=== PATIENT | female | born 1970 ===

== ENCOUNTER 2019-04-06 15:22 | Observation (INO) | payer MEDICAID, OTHER ==
[2019-04-06 15:36] VITALS: BMI 34.5
--- NOTE | 2019-04-06 16:23 | C.PDOC ---
History Of Present Illness 48 y/o female, with history of hypertension, presents to ED stating she is feeling low blood pressure and blood sugar. Notes that she didnt check her blood pressure and glucose at home, so she feels she had low blood pressure and blood glucose. Patient also notes of bilateral lackness of her vision described as dizziness and vertigo, worse when she moves her head. Denies any headache, synagogue pain, or history of stroke. Denies current vision issues. Also denies chest pain, SOB, abdominal pain, GI problem, neck stiffness, fever, chills, or night sweats. Time Seen by Provider: 04/06/19 15:48 Chief Complaint (Nursing): Medical Clearance History Per: Patient History/Exam Limitations: no limitations Onset/Duration Of Symptoms: Hrs Current Symptoms Are (Timing): Still Present Past Medical History Reviewed: Historical Data, Nursing Documentation, Vital Signs Vital Signs: Last Vital Signs Temp 98.4 F 04/06/19 15:33 Pulse 82 04/06/19 15:33 Resp 17 04/06/19 15:33 BP 134/84 04/06/19 15:33 Pulse Ox 100 04/06/19 15:33 Primary Care Provider: Radha Hines - Medical History PMH: HTN Surgical History: Appendectomy Family History: States: No Known Family Hx - Social History Hx Alcohol Use: No Hx Substance Use: No - Immunization History Hx Tetanus Toxoid Vaccination: No Review Of Systems Except As Marked, All Systems Reviewed And Found Negative. Constitutional: Negative for: Fever, Chills Eyes: Negative for: Vision Change Cardiovascular: Negative for: Chest Pain Respiratory: Negative for: Cough, Shortness of Breath Gastrointestinal: Negative for: Nausea, Vomiting, Abdominal Pain, Constipation Genitourinary: Negative for: Dysuria, Hematuria Musculoskeletal: Negative for: Neck Pain Neurological: Negative for: Headache, Dizziness Physical Exam - Physical Exam Appears: Well, Non-toxic, No Acute Distress Skin: Warm, Dry Head: Atraumatic, Normacephalic Eye(s): bilateral: Normal Inspection, PERRL, EOMI Ear(s): Bilateral: Normal Nose: Normal, No Flaring, No Discharge Oral Mucosa: Moist Tongue: Normal Appearing Lips: Normal Appearing Teeth: Normal Dentition Gingiva: Normal Appearing Throat: Normal, No Erythema, No Exudate, No Drooling Neck: Normal, Normal ROM, Supple, Other (no meningeal signs) Chest: Symmetrical Cardiovascular: Rhythm Regular, No Murmur Respiratory: Normal Breath Sounds, No Rales, No Rhonchi, No Wheezing Gastrointestinal/Abdominal: Soft, No Tenderness, No Mass, No Distention, No Guarding, No Rebound, No Hernia Back: Normal Inspection, No CVA Tenderness, No Vertebral Tenderness Extremity: Normal ROM, No Tenderness, No Pedal Edema Extremity: Bilateral: Atraumatic, Normal Color And Temperature, Normal ROM Pulses: Left Radial: Normal, Right Radial: Normal Neurological/Psych: Oriented x3, Normal Speech, Normal Cognition, Normal Cranial Nerves, No Cerebellar Signs, Normal Motor, Normal Sensation Gait: Steady ED Course And Treatment - Laboratory Results Result Diagrams: 04/06/19 17:11 04/06/19 17:11 O2 Sat by Pulse Oximetry: 100 (RA) Pulse Ox Interpretation: Normal Medical Decision Making Medical Decision Makin48 y/o female, with history of hypertension, presents to ED stating she is feeling low blood pressure and blood sugar. On exam, no cerebellar signs, good strong steady gait with good finger to nose. No central vertigo findings. No unilateral vision issues. She notes b/l blurred vision which has since resolved. No fall or trauma. No headache, nausea or vomiting. No neck pain or recent neck manipulation. Overall well appearing on exam with normal cardiac and neuro exam. Plan: --Labs --Chest XR --Glucose POC --POC urine --Urinalysis --Antivert 25 mg PO --IV fluids 1L --- Chest XR Findings IMPRESSION: No acute findings. --- 1804 CXR unremarkable labs unremarkable pending CTH Appreciate consult w/ Dr. Hines: to admit to his service- to follow CT pt in NAD, agreeable to plan. Disposition - Disposition Disposition: HOSPITALIZED Disposition Time: 18:16 Condition: STABLE Forms: Nimbula (Kiswahili) - Clinical Impression Clinical Impression: Dizziness - Scribe Statement The provider has reviewed the documentation as recorded by the Jewels [place] Provider Attestation: All medical record entries made by the Jewels were at my direction and personally dictated by me. I have reviewed the chart and agree that the record accurately reflects my personal performance of the history, physical exam, medical decision making, and the department course for this patient. I have also personally directed, reviewed, and agree with the discharge instructions and d isposition.
[2019-04-06] MEDS ORDERED: Sodium Chloride 0.9% 1,000 ML IV ONE (16:29)
--- NOTE | 2019-04-06 16:43 | RAD ---
HISTORY: dizzy COMPARISON: None available. TECHNIQUE: Chest PA and lateral, 2 views FINDINGS: LUNGS: No focal consolidation. Please note that chest x-ray has limited sensitivity for the detection of pulmonary masses. PLEURA: No significant pleural effusion identified. No definite pneumothorax . CARDIOVASCULAR: The cardiomediastinal silhouette appears within normal limits of size. Atherosclerotic calcifications present. OSSEOUS STRUCTURES: No acute osseous abnormality identified. VISUALIZED UPPER ABDOMEN: Unremarkable. OTHER FINDINGS: None. IMPRESSION: No acute findings.
[2019-04-06] MEDS ORDERED: Sodium Chloride 0.9% 1,000 ML ONE (17:01)
[2019-04-06 17:18] LABS: BASO % 0.4 % (0.0-2.0); EOS # 0.1 K/uL (0.0-0.7); EOS % 1.5 % (0.0-4.0); HEMOGLOBIN 12.8 g/dL (11.0-16.0); LYMPH # 1.8 K/uL (1.0-4.3); LYMPH % 21.3 % (20.0-40.0); MEAN CORPUSCULAR HEMOGLOBIN 26.5 pg (27.0-31.0); MEAN CORPUSCULAR HGB CONC 33.1 g/dL (33.0-37.0); MEAN PLATELET VOLUME 8.3 fL (7.2-11.7); MONO # 0.7 K/uL (0.0-0.8); NEUT # 5.6 K/uL (1.8-7.0); NEUT % 67.8 % (50.0-75.0); RBC 4.84 Mil/uL (3.80-5.20); RED CELL DISTRIBUTION WIDTH 14.1 % (11.5-14.5); WHITE BLOOD COUNT 8.2 K/uL (4.8-10.8)
[2019-04-06 17:25] LABS: SQUAMOUS EPITHIAL 12 /hpf (0-5); URINE BACTERIA RARE (<OCC); URINE BILIRUBIN NEGATIVE (NEGATIVE); URINE BLOOD NEGATIVE (NEGATIVE); URINE CLARITY Hazy (Clear); URINE COLOR Yellow (YELLOW); URINE GLUCOSE (UA) NORMAL (Normal); URINE LEUKOCYTE ESTERASE NEG Leu/uL (Negative); URINE PROTEIN NEGATIVE (NEGATIVE); URINE UROBILINOGEN NORMAL mg/dL (0.2-1.0)
[2019-04-06 17:29] LABS: ALB/GLOB RATIO 1.1 (1.0-2.1); ALBUMIN 3.9 g/dL (3.5-5.0); ALT/SGPT 24 U/L (9-52); AST/SGOT 23 U/L (14-36); BLOOD UREA NITROGEN 10 mg/dL (7-17); CALCIUM 9.5 mg/dl (8.6-10.4); GFR NON-AFRICAN AMERICAN > 60
--- NOTE | 2019-04-06 19:22 | CT ---
Date of service: 04/06/2019 PROCEDURE: CT HEAD WITHOUT CONTRAST. HISTORY: dizzy COMPARISON: None available. TECHNIQUE: Axial computed tomography images were obtained through the head/brain without intravenous contrast. Radiation dose: Total exam DLP = 1025.65 mGy-cm. This CT exam was performed using one or more of the following dose reduction techniques: Automated exposure control, adjustment of the mA and/or kV according to patient size, and/or use of iterative reconstruction technique. FINDINGS: HEMORRHAGE: No intracranial hemorrhage. BRAIN: No mass effect or edema. No atrophy or chronic microvascular ischemic changes. VENTRICLES: Unremarkable. No hydrocephalus. CALVARIUM: Unremarkable. PARANASAL SINUSES: Unremarkable as visualized. No significant inflammatory changes. MASTOID AIR CELLS: Unremarkable as visualized. No inflammatory changes. OTHER FINDINGS: None. IMPRESSION: No evidence of acute intracranial hemorrhage mass effect or midline shift.
--- NOTE | 2019-04-06 20:57 | CP.PCM.HP ---
Past Patient History - Past Social History Smoking Status: Never Smoked - CARDIAC Hx Hypertension: Yes - NEUROLOGICAL Hx Neurological Disorder: Yes (POLIO) - PSYCHIATRIC Hx Substance Use: No - SURGICAL HISTORY Hx Appendectomy: Yes Meds Allergies/Adverse Reactions: Allergies Allergy/AdvReac Type Severity Reaction Status Date / Time No Known Allergies Allergy Verified 04/06/19 15:27 Physical Exam - Constitutional Appears: Well - Head Exam Head Exam: ATRAUMATIC, NORMAL INSPECTION, NORMOCEPHALIC - Eye Exam Eye Exam: EOMI, Normal appearance, PERRL Pupil Exam: NORMAL ACCOMODATION, PERRL - ENT Exam ENT Exam: Mucous Membranes Moist, Normal Exam - Neck Exam Neck exam: Positive for: Normal Inspection - Respiratory Exam Respiratory Exam: Decreased Breath Sounds - Cardiovascular Exam Cardiovascular Exam: REGULAR RHYTHM, +S1, +S2 - GI/Abdominal Exam GI & Abdominal Exam: Diminished Bowel Sounds, Soft - Rectal Exam Rectal Exam: Deferred - Neurological Exam Neurological exam: Oriented x3 Results - Vital Signs Recent Vital Signs: Last Vital Signs Temp 97.6 F 04/06/19 20:54 Pulse 80 04/06/19 20:54 Resp 16 04/06/19 20:54 BP 88/55 L 04/06/19 20:54 Pulse Ox 99 04/06/19 20:54 - Labs Result Diagrams: 04/06/19 17:11 04/06/19 17:11 Labs: Laboratory Results - last 24 hr 04/06/19 04/06/19 04/06/19 15:35 17:11 17:11 WBC 8.2 RBC 4.84 Hgb 12.8 Hct 38.7 MCV 80.0 L MCH 26.5 L MCHC 33.1 RDW 14.1 Plt Count 231 MPV 8.3 Neut % (Auto) 67.8 Lymph % (Auto) 21.3 [place] % (Auto) 9.0 Eos % (Auto) 1.5 Baso % (Auto) 0.4 Neut # (Auto) 5.6 Lymph # (Auto) 1.8 [place] # (Auto) 0.7 Eos # (Auto) 0.1 Baso # (Auto) 0.0 Sodium Potassium Chloride Carbon Dioxide Anion Gap BUN Creatinine Est GFR ( Amer) Est GFR (Non-Af Amer) POC Glucose (mg/dL) 82 Random Glucose Calcium Total Bilirubin AST ALT Alkaline Phosphatase Total Protein Albumin Globulin Albumin/Globulin Ratio Urine Color Yellow Urine Clarity Hazy Urine pH 6.0 Ur Specific [place] 1.004 Urine Protein Negative Urine Glucose (UA) Normal Urine Ketones Negative Urine Blood Negative Urine Nitrate Negative Urine Bilirubin Negative Urine Urobilinogen Normal Ur Leukocyte Esterase Neg Urine WBC (Auto) 1 Urine RBC (Auto) < 1 Ur Squamous Epith Cells 12 H Urine Bacteria Rare 04/06/19 17:11 WBC RBC Hgb Hct MCV MCH MCHC RDW Plt Count MPV Neut % (Auto) Lymph % (Auto) [place] % (Auto) Eos % (Auto) Baso % (Auto) Neut # (Auto) Lymph # (Auto) [place] # (Auto) Eos # (Auto) Baso # (Auto) Sodium 138 Potassium 4.0 Chloride 102 Carbon Dioxide 28 Anion Gap 12 BUN 10 Creatinine 0.5 L Est GFR ( Amer) > 60 Est GFR (Non-Af Amer) > 60 POC Glucose (mg/dL) Random Glucose 86 Calcium 9.5 Total Bilirubin 0.5 AST 23 ALT 24 Alkaline Phosphatase 89 Total Protein 7.4 Albumin 3.9 Globulin 3.4 Albumin/Globulin Ratio 1.1 Urine Color Urine Clarity Urine pH Ur Specific [place] Urine Protein Urine Glucose (UA) Urine Ketones Urine Blood Urine Nitrate Urine Bilirubin Urine Urobilinogen Ur Leukocyte Esterase Urine WBC (Auto) Urine RBC (Auto) Ur Squamous Epith Cells Urine Bacteria
[2019-04-06 22:29] VITALS: RESP 20
[2019-04-07 01:22] LABS: CK-MB 0.33 ng/mL (0.0-3.38)
[2019-04-07 07:37] VITALS: O2SAT 97
[2019-04-07] MEDS ORDERED: Enoxaparin 40 mg Syringe SC SCH (10:00)
[2019-04-07] MEDS ORDERED: Pantoprazole 40 mg EC Tab PO SCH (10:00)
[2019-04-07] MEDS ORDERED: Pneumococcal 23-Valent Vaccine IM ONE (10:00)
--- NOTE | 2019-04-07 11:07 | CP.PCM.PN ---
Subjective - Date & Time of Evaluation Date of Evaluation: 04/07/19 Time of Evaluation: 11:06 - Subjective Subjective: 48 year old female with a past medical history of polio and hypertension presents to the hospital after reporting dizziness for the past couple of days. Patient states states she felt like "her blood pressure and sugar were low", however didn't check either while at home. Patient also reported unilateral blurry vision that happened in conjunction with the dizziness. Patient states she never had that happen before which is why she decided to come in. Patient denies any chest pain, fevers, chills, headaches, nausea, vomiting, syncopal episodes, or any other complaints. Medical history: htn, polio Medications: Lisinopril 10mg PO DAILY Allergies: Denies Surgical history: Left left surgery, Appendectomy, 2 Objective - Vital Signs/Intake and Output Vital Signs (last 24 hours): Temp Pulse Resp BP Pulse Ox 97.4 F L 74 20 121/76 97 04/07/19 07:00 04/07/19 07:00 04/07/19 07:00 04/07/19 07:00 04/07/19 07:00 Intake and Output: 04/07/19 04/07/19 06:59 18:59 Intake Total 180 Balance 180 - Medications Medications: Current Medications Aspirin (Aspirin) 325 mg PO DAILY [facility] Last Admin: 04/07/19 09:37 Dose: 325 mg Enoxaparin Sodium (Lovenox) 40 mg SC DAILY [facility] Last Admin: 04/07/19 09:37 Dose: 40 mg Lisinopril (Zestril) 10 mg PO DAILY [facility] Last Admin: 04/07/19 09:37 Dose: 10 mg Meclizine HCl (Antivert) 25 mg PO Q8 [facility] Last Admin: 04/07/19 09:37 Dose: 25 mg Pantoprazole Sodium (Protonix Ec Tab) 40 mg PO DAILY [facility] Last Admin: 04/07/19 09:37 Dose: 40 mg - Labs Labs: 04/06/19 17:11 04/06/19 17:11 - Head Exam Head Exam: ATRAUMATIC, NORMAL INSPECTION - Eye Exam Eye Exam: EOMI, Normal appearance, PERRL Pupil Exam: NORMAL ACCOMODATION. absent: Irregular, Unequal - ENT Exam ENT Exam: Mucous Membranes Moist, Normal Oropharynx - Respiratory Exam Respiratory Exam: Clear to Ausculation Bilateral, NORMAL BREATHING PATTERN. absent: Prolonged Expiratory Phase, Respiratory Distress - Cardiovascular Exam Cardiovascular Exam: REGULAR RHYTHM, RRR, +S1, +S2. absent: Rubs - GI/Abdominal Exam GI & Abdominal Exam: Soft, Normal Bowel Sounds. absent: Hyperactive Bowel Soun ds - Extremities Exam Extremities Exam: Full ROM, Normal Inspection. absent: Joint Swelling, Pedal Edema - Back Exam Back Exam: NORMAL INSPECTION. absent: CVA tenderness (R), paraspinal tenderness - Neurological Exam Neurological Exam: Alert, Awake, CN II-XII Intact, Oriented x3 - Psychiatric Exam Psychiatric exam: Normal Affect, Normal Mood - Skin Skin Exam: Dry, Intact, Normal Color Assessment and Plan - Assessment and Plan (Free Text) Assessment: 48 year old female with a past medical history of polio and hypertension presents to the hospital after reporting dizziness for the past couple of days. Plan: 1.Dizziness Head CT: negative Neurology Dr. Roper consulted--> Help appreciated Meidcations: Antivert 25mg PO Q8 [facility] Aspirin 325mg PO DAILY 2. hx of Hypertension -Continue Lisinopril 10mg PO DAILY PPX -Lovenox -PT Plan discussed with Attending Dr. Hines. Discharge Instructions: 1.F/u with PMD within 5 days of discharge. 2. F/u with Neurology within 5 days of discharge. 3.F/u with Ophthalmology within 5 days of discharge. 4. Return to hospital for any new or worsening symptoms. Medications: 1.ASA 325MG PO DAILY, #30, No refills 2.Lisinopril 10mg PO DAILY, #30., No refills 3.Antivert 25mg PO DAILY, #30, No refills. Samson Chavira, PGY-2
[2019-04-07 16:03] VITALS: BP 105/69; PULSE 82; TEMP 98
--- NOTE | 2019-04-07 16:43 | CP.PCM.PN ---
Subjective - Date & Time of Evaluation Date of Evaluation: 04/07/19 Objective - Vital Signs/Intake and Output Vital Signs (last 24 hours): Temp Pulse Resp BP Pulse Ox 98.0 F 82 20 105/69 97 04/07/19 16:00 04/07/19 16:00 04/07/19 16:00 04/07/19 16:00 04/07/19 16:00 Intake and Output: 04/07/19 04/07/19 06:59 18:59 Intake Total 180 Balance 180 - Medications Medications: Current Medications Aspirin (Aspirin) 325 mg PO DAILY [facility] Last Admin: 04/07/19 09:37 Dose: 325 mg Enoxaparin Sodium (Lovenox) 40 mg SC DAILY [facility] Last Admin: 04/07/19 09:37 Dose: 40 mg Lisinopril (Zestril) 10 mg PO DAILY [facility] Last Admin: 04/07/19 09:37 Dose: 10 mg Meclizine HCl (Antivert) 25 mg PO Q8 [facility] Last Admin: 04/07/19 13:22 Dose: 25 mg Pantoprazole Sodium (Protonix Ec Tab) 40 mg PO DAILY [facility] Last Admin: 04/07/19 09:37 Dose: 40 mg - Labs Labs: 04/06/19 17:11 04/06/19 17:11 - Constitutional Appears: Well - Head Exam Head Exam: ATRAUMATIC, NORMAL INSPECTION, NORMOCEPHALIC - Eye Exam Eye Exam: EOMI, Normal appearance, PERRL Pupil Exam: NORMAL ACCOMODATION, PERRL - ENT Exam ENT Exam: Mucous Membranes Moist, Normal Exam - Neck Exam Neck Exam: Full ROM, Normal Inspection. absent: Lymphadenopathy - Respiratory Exam Respiratory Exam: Decreased Breath Sounds - Cardiovascular Exam Cardiovascular Exam: REGULAR RHYTHM, +S1, +S2 - GI/Abdominal Exam GI & Abdominal Exam: Soft, Diminished Bowel Sounds - Rectal Exam Rectal Exam: Deferred - Neurological Exam Neurological Exam: Oriented x3
--- NOTE | 2019-04-07 18:50 | CON ---
DATE: 04/07/2019 NEUROLOGY CONSULTATION CHIEF COMPLAINT: Dizziness. HISTORY OF PRESENT ILLNESS: This is a 48-year-old woman with history of portal hypertension, who presented to the hospital after having dizziness for the past couple of days. It felt like she was lightheaded and room was spinning, was seeing blurry vision. The patient stated it never happened before. She denies any recent trauma to the brain. CAT scan of the head showed no acute intracranial abnormalities. She had low systolic and diastolic blood pressure of 88/55 when she was admitted and was mildly dehydrated. Currently, she is at her baseline and will be discharged home and follow up in her our office as an out patient. PAST MEDICAL HISTORY: As above. SOCIAL HISTORY: No illicit drug use, smoking or EtOH abuse. REVIEW OF SYSTEMS: A 14-point review of systems negative except in the HPI. FAMILY HISTORY: Noncontributory. MEDICATIONS: Reviewed by nurse reconciliation sheet. PHYSICAL EXAMINATION: GENERAL: The patient is sitting up in bed, in no acute distress. VITAL SIGNS: Temperature 98, pulse 82, blood pressure 105/69, respiratory rate 20, oxygen saturation 97%. HEENT: Atraumatic, normocephalic. PERRLA. Extraocular muscles are intact. NECK: Supple. No JVD. No adenopathy noted. LUNGS: Clear to auscultation. No adventitious sounds. HEART: S1 and S2. Normal rate and rhythm. No murmurs, rubs, or gallops. ABDOMEN: Soft, nontender, nondistended. Bowel sounds present. EXTREMITIES: No clubbing, no cyanosis. Peripheral pulses 2+ felt bilaterally. NEURO: The patient is alert and oriented to person and place, but not year. Speech is fluent without any errors. Cranial nerves II through XII intact. Motor exam: Moves all extremities equally, but has some mild lower extremity . Sensory exam: Light touch, pinprick, proprioception and vibration intact. DTRs are 2+ throughout. Coordination: [id number] intact. No dysmetria noted. Gait is slightly wide-based. IMPRESSION: Dizziness. This is more of a positional vertigo with transient cerebral hypoperfusion to the brain. RECOMMENDATIONS: At this time, recommend: 1. Meclizine 25 mg at acute onset of dizziness. 2. Outpatient vestibular therapy and to follow up as a outpatient and fluid hydration throughout the day . Thank you for this consult. Zion Roper MD
--- NOTE | 2019-04-07 19:09 | CP.PCM.DIS ---
Provider - Provider Date of Admission: 04/06/19 18:11 Attending physician: Osman Hines MD Consults: 04/06/19 22:54 Neurology Consult Routine Comment: Consulting Provider: Zion Roper Consulting Physician: Zion Roper Reason for Consult: vertigo Hospital Course - Lab Results Lab Results: Most Recent Lab Values WBC 8.2 K/uL (4.8-10.8) 04/06/19 17:11 RBC 4.84 Mil/uL (3.80-5.20) 04/06/19 17:11 Hgb 12.8 g/dL (11.0-16.0) 04/06/19 17:11 Hct 38.7 % (34.0-47.0) 04/06/19 17:11 MCV 80.0 fL (81.0-99.0) L 04/06/19 17:11 MCH 26.5 pg (27.0-31.0) L 04/06/19 17:11 MCHC 33.1 g/dL (33.0-37.0) 04/06/19 17:11 RDW 14.1 % (11.5-14.5) 04/06/19 17:11 Plt Count 231 K/uL (130-400) 04/06/19 17:11 MPV 8.3 fL (7.2-11.7) 04/06/19 17:11 Neut % (Auto) 67.8 % (50.0-75.0) 04/06/19 17:11 Lymph % (Auto) 21.3 % (20.0-40.0) 04/06/19 17:11 [place] % (Auto) 9.0 % (0.0-10.0) 04/06/19 17:11 Eos % (Auto) 1.5 % (0.0-4.0) 04/06/19 17:11 Baso % (Auto) 0.4 % (0.0-2.0) 04/06/19 17:11 Neut # (Auto) 5.6 K/uL (1.8-7.0) 04/06/19 17:11 Lymph # (Auto) 1.8 K/uL (1.0-4.3) 04/06/19 17:11 [place] # (Auto) 0.7 K/uL (0.0-0.8) 04/06/19 17:11 Eos # (Auto) 0.1 K/uL (0.0-0.7) 04/06/19 17:11 Baso # (Auto) 0.0 K/uL (0.0-0.2) 04/06/19 17:11 Sodium 138 mmol/L (132-148) 04/06/19 17:11 Potassium 4.0 mmol/L (3.6-5.2) 04/06/19 17:11 Chloride 102 mmol/L (98-107) 04/06/19 17:11 Carbon Dioxide 28 mmol/L (22-30) 04/06/19 17:11 Anion Gap 12 (10-20) 04/06/19 17:11 BUN 10 mg/dL (7-17) 04/06/19 17:11 Creatinine 0.5 mg/dL (0.7-1.2) L 04/06/19 17:11 Est GFR ( Amer) > 60 04/06/19 17:11 Est GFR (Non-Af Amer) > 60 04/06/19 17:11 POC Glucose (mg/dL) 82 mg/dL (65-110) 04/06/19 15:35 Random Glucose 86 mg/dL (65-105) 04/06/19 17:11 Calcium 9.5 mg/dl (8.6-10.4) 04/06/19 17:11 Total Bilirubin 0.5 mg/dL (0.2-1.3) 04/06/19 17:11 AST 23 U/L (14-36) 04/06/19 17:11 ALT 24 U/L (9-52) 04/06/19 17:11 Alkaline Phosphatase 89 U/L (38-126) 04/06/19 17:11 Total Creatine Kinase 42 U/L (30-135) 04/07/19 00:25 CK-MB (Mass) 0.33 ng/mL (0.0-3.38) 04/07/19 00:25 Troponin I < 0.0120 ng/mL (0.00-0.120) 04/07/19 00:25 Total Protein 7.4 g/dL (6.3-8.3) 04/06/19 17:11 Albumin 3.9 g/dL (3.5-5.0) 04/06/19 17:11 Globulin 3.4 gm/dL (2.2-3.9) 04/06/19 17:11 Albumin/Globulin Ratio 1.1 (1.0-2.1) 04/06/19 17:11 Urine Color Yellow (YELLOW) 04/06/19 17:11 Urine Clarity Hazy (Clear) 04/06/19 17:11 Urine pH 6.0 (5.0-8.0) 04/06/19 17:11 Ur Specific [place] 1.004 (1.003-1.030) 04/06/19 17:11 Urine Protein Negative mg/dL (NEGATIVE) 04/06/19 17:11 Urine Glucose (UA) Normal mg/dL (Normal) 04/06/19 17:11 Urine Ketones Negative mg/dL (NEGATIVE) 04/06/19 17:11 Urine Blood Negative (NEGATIVE) 04/06/19 17:11 Urine Nitrate Negative (NEGATIVE) 04/06/19 17:11 Urine Bilirubin Negative (NEGATIVE) 04/06/19 17:11 Urine Urobilinogen Normal mg/dL (0.2-1.0) 04/06/19 17:11 Ur Leukocyte Esterase Neg Kelley/uL (Negative) 04/06/19 17:11 Urine WBC (Auto) 1 /hpf (0-5) 04/06/19 17:11 Urine RBC (Auto) < 1 /hpf (0-3) 04/06/19 17:11 Ur Squamous Epith Cells 12 /hpf (0-5) H 04/06/19 17:11 Urine Bacteria Rare (<OCC) 04/06/19 17:11 Urine HCG, Qual Negative (NEGATIVE) 04/07/19 07:11 Discharge Exam - Head Exam Head Exam: ATRAUMATIC, NORMAL INSPECTION, NORMOCEPHALIC - Eye Exam Eye Exam: EOMI, Normal appearance, PERRL Pupil Exam: NORMAL ACCOMODATION, PERRL - ENT Exam ENT Exam: Normal Exam - Neck Exam Neck exam: Full Rom - Respiratory Exam Respiratory Exam: Decreased Breath Sounds, Rales - Cardiovascular Exam Cardiovascular Exam: REGULAR RHYTHM, +S1, +S2 - GI/Abdominal Exam GI & Abdominal Exam: Diminished Bowel Sounds, Distended, Soft - Neurological Exam Neurological exam: Oriented x3 Discharge Plan - Discharge Medications Prescriptions: Meclizine [Antivert] 25 mg PO DAILY #30 tab Aspirin [Ecotrin] 325 mg PO DAILY #30 tablet. Lisinopril [Zestril] 10 mg PO DAILY #30 tablet - Follow Up Plan Condition: STABLE Disposition: HOME/ ROUTINE Instructions: Dizziness, Nonvertigo, (DC), Lisinopril, Meclizine Referrals: Zion Roper MD [Staff Provider] - Radha Hines MD [Staff Provider] -
== END 2019-04-07 17:50 | disposition home or self-care (01) ==
LOC: C.ER 15:22 → C.9E 18:11 → C.3T 21:21
PROVIDERS: ADMIT Internal Medicine Nephrology; ATTEND Internal Medicine Nephrology
DX: R42 Dizziness and giddiness (principal); I10 Essential (primary) hypertension; K76.6 Portal hypertension; Z86.12 Personal history of poliomyelitis; Z90.49 Acquired absence of other specified parts of digestive tract
CPT/HCPCS: 36415; 70450; 71046; 80053; 81001; 81025; 82948; 84484; 84703; 85025; 90471; 90732; 96360; 97116; 97161; 99285; G0378; G8978; G8979; J1650; J7030